=== PATIENT | male | born 1990 | race Hispanic/Latino ===

== ENCOUNTER 2021-04-29 19:51 | Emergency (ER) | payer SELFPAY ==
[~2021-04-29] VITALS: Ht 154.9 cm; Wt 63.5 kg
[2021-04-29] MEDS ORDERED: IBUPROFEN 600 MG TAB PO STA (20:01)
[2021-04-29] MEDS ORDERED: ONDANSETRON HCL 4 MG ORAL DISINTEGRATING TAB PO ONE (20:15)
[2021-04-29] MEDS ORDERED: CASIRIVIMAB/IMDEVIMAB 10 ML in SODIUM CHLORIDE 0.9% 100 ML IV ONE (20:15)
[2021-04-29] MEDS ORDERED: ACETAMINOPHEN 325 MG TAB PO ONE (21:30)
== END 2021-04-29 21:41 | disposition home or self-care (01) ==
LOC: ER 19:57
DX: R50.9 Fever, unspecified (principal); R05 Cough; U07.1 COVID-19; R11.2 Nausea with vomiting, unspecified
CPT/HCPCS: 99283; J7050; Q0162

== ENCOUNTER 2022-05-28 23:47 | Emergency (ER) | payer SELFPAY ==
[~2022-05-28] VITALS: Ht 154.9 cm; Wt 63.5 kg
[2022-05-29] MEDS ORDERED: ACETAMINOPHEN 325 MG TAB PO ONE (00:15)
[2022-05-29] MEDS ORDERED: DOXYCYCLINE HY100 MG PO (00:25)
[2022-05-29] MEDS: DOXYCYCLINE HYCLATE TABLET 100 MG TAB PO ONE (00:32)
[2022-05-29] MEDS: IBUPROFEN 600 MG TAB PO STA (00:32)
[2022-05-29] MEDS ORDERED: DOXYCYCLINE HYCLATE TABLET 100 MG TAB ONE (00:34)
== END 2022-05-29 01:22 | disposition home or self-care (01) ==
LOC: ER 23:53
DX: R50.9 Fever, unspecified (principal); L02.415 Cutaneous abscess of right lower limb; Z20.822 Contact with and (suspected) exposure to COVID-19
CPT/HCPCS: 0223U; 36415; 87400; 99283